=== PATIENT | female | born 1965 | race Two or more races ===

== ENCOUNTER 2021-03-12 03:08 | Emergency (ER) | payer OTHER ==
[~2021-03-12] VITALS: Ht 160 cm; Wt 54.4 kg
[2021-03-12] MEDS ORDERED: KETO10TA2 PO (08:13)
== END 2021-03-12 08:25 | disposition home or self-care (01) ==
LOC: ER 03:08
DX: M79.602 Pain in left arm (principal)

== ENCOUNTER → 2021-03-13 | Emergency (ER) | payer OTHER ==
[~2021-03-13] VITALS: Ht 154.9 cm; Wt 68.0 kg
[~2021-03-13] MED LIST: KETO10TA2 PO
== END | disposition left against medical advice (07) ==
LOC: ER 00:14
DX: Z53.21 Procedure and treatment not carried out due to patient leaving prior to being seen by health care provider (principal)

== ENCOUNTER 2021-03-24 01:17 | Emergency (ER) | payer OTHER ==
[~2021-03-24] VITALS: Ht 157.5 cm; Wt 70.3 kg
== END 2021-03-24 09:19 | disposition home or self-care (01) ==
LOC: ER 01:17
DX: M25.512 Pain in left shoulder (principal)

== ENCOUNTER 2021-03-24 22:19 | Emergency (ER) | payer OTHER ==
[~2021-03-24] VITALS: Ht 160 cm; Wt 54.4 kg
== END 2021-03-25 06:07 | disposition home or self-care (01) ==
LOC: ER 22:19
DX: M25.512 Pain in left shoulder (principal)

== ENCOUNTER → 2021-04-23 | Emergency (ER) | payer OTHER ==
[~2021-04-23] VITALS: Ht 160 cm; Wt 68.0 kg
== END | disposition home or self-care (01) ==
LOC: ER 01:59
DX: M25.512 Pain in left shoulder (principal)

== ENCOUNTER → 2021-05-17 | Emergency (ER) | payer OTHER ==
[~2021-05-17] VITALS: Ht 162.6 cm; Wt 70.3 kg
== END | disposition left against medical advice (07) ==
LOC: ER 22:28
DX: M25.512 Pain in left shoulder (principal)

== ENCOUNTER 2021-05-18 23:53 | Emergency (ER) | payer OTHER ==
[~2021-05-18] VITALS: Ht 160 cm; Wt 54.4 kg
== END 2021-05-19 | disposition left against medical advice (07) ==
LOC: ER 23:53
DX: Z53.21 Procedure and treatment not carried out due to patient leaving prior to being seen by health care provider (principal)

== ENCOUNTER → 2021-05-29 | Emergency (ER) | payer OTHER ==
[~2021-05-29] VITALS: Ht 152.4 cm; Wt 52.2 kg
== END | disposition left against medical advice (07) ==
LOC: ER 17:56
DX: Z53.21 Procedure and treatment not carried out due to patient leaving prior to being seen by health care provider (principal)

== ENCOUNTER → 2021-06-22 | Emergency (ER) | payer OTHER ==
[~2021-06-22] VITALS: Ht 160 cm; Wt 59.0 kg
== END | disposition left against medical advice (07) ==
LOC: ER 21:11

== ENCOUNTER 2021-10-11 18:07 | Emergency (ER) | payer OTHER ==
[~2021-10-11] VITALS: Ht 160 cm; Wt 49.9 kg
== END 2021-10-11 21:17 | disposition home or self-care (01) ==
LOC: ER 18:07
DX: L02.31 Cutaneous abscess of buttock (principal)

== ENCOUNTER 2021-10-20 16:22 | Emergency (ER) | payer OTHER ==
[~2021-10-20] VITALS: Ht 157.5 cm; Wt 54.4 kg
== END 2021-10-20 21:15 | disposition home or self-care (01) ==
LOC: ER 16:22
DX: T21.05XA Burn of unspecified degree of buttock, initial encounter (principal); T79.9XXA Unspecified early complication of trauma, initial encounter

== ENCOUNTER → 2021-11-03 | Emergency (ER) | payer OTHER ==
[~2021-11-03] VITALS: Ht 160 cm; Wt 54.4 kg
== END | disposition home or self-care (01) ==
LOC: ER 20:07
DX: L55.0 Sunburn of first degree (principal)

== ENCOUNTER 2021-12-08 21:34 | Emergency (ER) | payer OTHER ==
[~2021-12-08] VITALS: Ht 152.4 cm; Wt 59.0 kg
== END 2021-12-09 13:56 | disposition left against medical advice (07) ==
LOC: ER 21:34
DX: L29.9 Pruritus, unspecified (principal); L30.8 Other specified dermatitis

== ENCOUNTER → 2021-12-16 | Emergency (ER) | payer OTHER ==
[~2021-12-16] VITALS: Ht 154.9 cm; Wt 45.4 kg
== END | disposition left against medical advice (07) ==
LOC: ER 11:15
DX: Z53.21 Procedure and treatment not carried out due to patient leaving prior to being seen by health care provider (principal)

== ENCOUNTER → 2022-01-26 | Emergency (ER) | payer OTHER ==
[~2022-01-26] VITALS: Ht 160 cm; Wt 59.0 kg
== END | disposition left against medical advice (07) ==
LOC: ER 20:21
DX: Z53.21 Procedure and treatment not carried out due to patient leaving prior to being seen by health care provider (principal)

== ENCOUNTER 2022-01-27 00:59 | Emergency (ER) | payer OTHER ==
[~2022-01-27] VITALS: Ht 154.9 cm; Wt 56.7 kg
== END 2022-01-27 12:56 | disposition home or self-care (01) ==
LOC: ER 00:59
DX: M25.532 Pain in left wrist (principal); M25.562 Pain in left knee; Z65.9 Problem related to unspecified psychosocial circumstances

== ENCOUNTER → 2022-03-28 | Emergency (ER) | payer OTHER ==
[~2022-03-28] VITALS: Ht 160 cm; Wt 54.4 kg
== END | disposition left against medical advice (07) ==
LOC: ER 19:52
DX: S60.212S Contusion of left wrist, sequela (principal); X58.XXXS Exposure to other specified factors, sequela

== ENCOUNTER → 2022-04-14 | Emergency (ER) | payer OTHER ==
[~2022-04-14] VITALS: Ht 152.4 cm; Wt 54.0 kg
== END | disposition left against medical advice (07) ==
LOC: ER 19:54
DX: Z53.21 Procedure and treatment not carried out due to patient leaving prior to being seen by health care provider (principal)

== ENCOUNTER 2022-04-15 06:30 | Emergency (ER) | payer OTHER ==
[~2022-04-15] VITALS: Ht 152.4 cm; Wt 54.4 kg
== END 2022-04-15 15:18 | disposition home or self-care (01) ==
LOC: ER 06:30
DX: S99.911A Unspecified injury of right ankle, initial encounter (principal); V03.00XA Pedestrian on foot injured in collision with car, pick-up truck or van in nontraffic accident, initial encounter; Y93.9 Activity, unspecified; Y92.413 State road as the place of occurrence of the external cause; S89.91XA Unspecified injury of right lower leg, initial encounter; S99.921A Unspecified injury of right foot, initial encounter

== ENCOUNTER → 2022-05-04 | Emergency (ER) | payer OTHER | END | disposition left against medical advice (07) | LOC: ER 21:11 | DX: Z53.21 Procedure and treatment not carried out due to patient leaving prior to being seen by health care provider (principal) ==

== ENCOUNTER → 2022-06-12 | Emergency (ER) | payer OTHER | END | disposition left against medical advice (07) | LOC: ER 19:57 | DX: Z53.21 Procedure and treatment not carried out due to patient leaving prior to being seen by health care provider (principal) ==

== ENCOUNTER → 2022-08-09 | Emergency (ER) | payer OTHER ==
[~2022-08-09] VITALS: Ht 152.4 cm; Wt 54.4 kg
== END | disposition left against medical advice (07) ==
LOC: ER 17:53
DX: Z53.21 Procedure and treatment not carried out due to patient leaving prior to being seen by health care provider (principal)

== ENCOUNTER 2022-08-13 21:28 | Emergency (ER) | payer OTHER ==
[~2022-08-13] VITALS: Ht 157.5 cm; Wt 56.7 kg
== END 2022-08-14 16:03 | disposition home or self-care (01) ==
LOC: ER 21:28
DX: L03.116 Cellulitis of left lower limb (principal); Z59.00 Homelessness unspecified

== ENCOUNTER 2022-08-19 19:43 | Emergency (ER) | payer OTHER ==
[~2022-08-19] VITALS: Ht 157.5 cm; Wt 63.5 kg
== END 2022-08-19 21:16 | disposition home or self-care (01) ==
LOC: ER 19:43
DX: M54.9 Dorsalgia, unspecified (principal)

== ENCOUNTER → 2022-10-06 | Emergency (ER) | payer OTHER ==
[~2022-10-06] VITALS: Ht 160 cm; Wt 54.4 kg
[~2022-10-06] MED LIST changes: +LITHATE20 MG
== END | disposition left against medical advice (07) ==
LOC: ER 20:21
DX: Z53.21 Procedure and treatment not carried out due to patient leaving prior to being seen by health care provider (principal)

== ENCOUNTER 2022-10-11 18:29 | Emergency (ER) | payer OTHER ==
[~2022-10-11] VITALS: Ht 160 cm; Wt 49.9 kg
== END 2022-10-11 19:42 | disposition left against medical advice (07) ==
LOC: ER 18:29
DX: Z53.21 Procedure and treatment not carried out due to patient leaving prior to being seen by health care provider (principal)

== ENCOUNTER → 2022-10-27 | Emergency (ER) | payer OTHER ==
[~2022-10-27] VITALS: Ht 149.9 cm; Wt 68.0 kg
== END | disposition left against medical advice (07) ==
LOC: ER 21:36
DX: Z53.21 Procedure and treatment not carried out due to patient leaving prior to being seen by health care provider (principal)

== ENCOUNTER → 2023-06-11 | Emergency (ER) | payer OTHER ==
[~2023-06-11] VITALS: Ht 160 cm; Wt 54.4 kg
== END | disposition left against medical advice (07) ==
LOC: ER 02:54
DX: Z53.21 Procedure and treatment not carried out due to patient leaving prior to being seen by health care provider (principal)

== ENCOUNTER → 2023-06-16 | Emergency (ER) | payer OTHER | END | disposition left against medical advice (07) | LOC: ER 21:02 | DX: Z53.21 Procedure and treatment not carried out due to patient leaving prior to being seen by health care provider (principal) ==